=== PATIENT | female | born 1945 | race African-American/Black ===

== ENCOUNTER 2024-02-10 07:36 | Emergency (ER) | payer MEDICARE, OTHER ==
[~2024-02-10] VITALS: Ht 162.6 cm; Wt 78.0 kg
[2024-02-10 07:38] VITALS: O2SAT 97
[2024-02-10] MEDS: HYDROCODONE/ACETAMINOPHEN 5/325MG TABLET PO ONE (08:38)
[2024-02-10 09:21] LABS: BASOPHILS % 0.2 % (0.0-2.0); DIFFERENTIAL COMMENT 0; EOSINOPHILS % 0.3 % (0.0-5.0); HEMATOCRIT. 31.3 % (36.0-48.0); HEMOGLOBIN. 10.1 g/dL (12.0-16.0); LYMPHOCYTES % 14.9 % (20.0-50.0); MEAN CORPUSCULAR HEMOGLOBIN 32.3 pg (28.0-32.0); MEAN CORPUSCULAR HGB CONC 32.2 g/dL (31.0-37.0); MEAN CORPUSCULAR VOLUME 100.3 fL (81.0-99.0); MEAN PLATELET VOLUME 9.5 fl (7.4-10.4); NEUTROPHILS % 78.6 % (40.0-76.0); PLATELET 176 x1000/uL (130-400); RED BLOOD CELL COUNT 3.12 mill/uL (4.2-5.4); RED CELL DISTRIBUTION WIDTH 18.8 % (11.6-14.6); WHITE BLOOD COUNT 7.1 x1000/uL (4.5-11.0)
[2024-02-10 09:35] LABS: POTASSIUM 4.3 mEq/L (3.5-5.1)
[2024-02-10 09:36] LABS: CALCIUM 8.8 mg/dL (8.7-10.4)
[2024-02-10 10:00] LABS: CREATININE 9.4 mg/dL (0.6-1.0)
[2024-02-10] MEDS ORDERED: T3 PO (12:16)
[2024-02-10] MEDS ORDERED: ACET-2708 MT (12:19)
[2024-02-10 14:59] VITALS: BP 164/74; PULSE 72; RESP 16; TEMP 98.4
== END 2024-02-10 14:59 | disposition home or self-care (01) ==
LOC: ER 07:36
DX: M25.512 Pain in left shoulder (principal); E11.9 Type 2 diabetes mellitus without complications; Z99.2 Dependence on renal dialysis
CPT/HCPCS: 36415; 73030; 80048; 85025; 99284